=== PATIENT | male | born 2000 | race Caucasian/White ===

== ENCOUNTER 2019-01-01 20:58 | Emergency (ER) | payer MEDICAID ==
[~2019-01-01] VITALS: Ht 170.2 cm; Wt 75.0 kg
[~2019-01-01 20:58] MED LIST: KEPP250
[2019-01-01 23:11] LABS: BASOPHILS % 0.4 % (0.0-2.0); EOSINOPHILS % 0.3 % (0.0-5.0); HEMATOCRIT. 46.4 % (42.0-52.0); HEMOGLOBIN. 16.2 g/dL (14.0-18.0); LYMPHOCYTES % 21.9 % (20.0-50.0); MEAN CORPUSCULAR HEMOGLOBIN 29.4 pg (28.0-32.0); MEAN PLATELET VOLUME 8.2 fl (7.4-10.4); MONOCYTES % 6.9 % (2.0-8.0); NEUTROPHILS % 70.5 % (40.0-76.0); PLATELET 259 x1000/uL (130-400); RED BLOOD CELL COUNT 5.53 mill/uL (4.7-6.1)
[2019-01-01 23:18] LABS: CHLORIDE 102 mEq/L (98-107)
[2019-01-02 01:46] VITALS: BP 117/63
== END 2019-01-02 01:47 | disposition home or self-care (01) ==
LOC: ER 20:58
DX: G40.909 Epilepsy, unspecified, not intractable, without status epilepticus (principal); R55 Syncope and collapse; R51 Headache
CPT/HCPCS: 36415; 99283

== ENCOUNTER 2019-02-02 19:02 | Emergency (ER) | payer MEDICAID ==
[~2019-02-02] VITALS: Ht 177.8 cm; Wt 91.0 kg
[2019-02-02] MEDS ORDERED: LEVETIRACETAM 500MG PREMIX 100 ML IV ONE (19:30)
[2019-02-02] MEDS ORDERED: IBUPROFEN 600MG TABLET PO ONE (19:30)
[2019-02-02 20:14] LABS: BASOPHILS % 0.6 % (0.0-2.0); EOSINOPHILS % 2.3 % (0.0-5.0); HEMATOCRIT. 44.8 % (42.0-52.0); HEMOGLOBIN. 15.4 g/dL (14.0-18.0); LYMPHOCYTES % 27.3 % (20.0-50.0); MEAN CORPUSCULAR VOLUME 84.1 fL (80.0-94.0); MEAN PLATELET VOLUME 8.5 fl (7.4-10.4); MONOCYTES % 6.9 % (2.0-8.0); NEUTROPHILS % 62.9 % (40.0-76.0); PLATELET 235 x1000/uL (130-400); RED BLOOD CELL COUNT 5.33 mill/uL (4.7-6.1); RED CELL DISTRIBUTION WIDTH 13.4 % (11.6-14.6)
[2019-02-02 20:18] LABS: CHLORIDE 104 mEq/L (98-107)
[2019-02-02 20:28] LABS: PHENOBARBITAL 2.6 ug/mL (15.0-40.0)
[2019-02-02 20:31] LABS: CARBAMAZEPINE < 0.5 ug/mL (4-12)
[2019-02-02] MEDS ORDERED: DIVALPROEX SODIUM 250MG ER TABLET PO ONE (21:15)
[2019-02-02 21:55] VITALS: BP 124/75
== END 2019-02-02 21:45 | disposition home or self-care (01) ==
LOC: ER 21:13
DX: G40.909 Epilepsy, unspecified, not intractable, without status epilepticus (principal)
CPT/HCPCS: 36415; 70450; 80053; 80156; 80165; 80184; 80185; 85025; 96365; 99284; J1953; Z7610

== ENCOUNTER 2021-10-01 13:45 | Emergency (ER) | payer MEDICAID, OTHER ==
[~2021-10-01] VITALS: Ht 172.7 cm; Wt 111.0 kg
[2021-10-01] MEDS ORDERED: LEVETIRACETAM 500MG PREMIX 100 ML IV ONE ×2 (14:00)
[2021-10-01 14:14] LABS: BASOPHILS % 0.3 % (0.0-2.0); EOSINOPHILS % 0.7 % (0.0-5.0); HEMATOCRIT. 48.4 % (42.0-52.0); HEMOGLOBIN. 16.7 g/dL (14.0-18.0); LYMPHOCYTES % 32.1 % (20.0-50.0); MEAN CORPUSCULAR HEMOGLOBIN 28.9 pg (28.0-32.0); MEAN CORPUSCULAR VOLUME 83.8 fL (80.0-94.0); MEAN PLATELET VOLUME 8.1 fl (7.4-10.4); MONOCYTES % 6.8 % (2.0-8.0); NEUTROPHILS % 60.1 % (40.0-76.0); PLATELET 247 x1000/uL (130-400); RED BLOOD CELL COUNT 5.77 mill/uL (4.7-6.1); RED CELL DISTRIBUTION WIDTH 12.9 % (11.6-14.6)
[2021-10-01] MEDS ORDERED: SODIUM CHLORIDE 0.9% 1,000 ML IV ONE (14:15)
[2021-10-01 14:23] LABS: CHLORIDE 106 mEq/L (98-107)
[2021-10-01 14:27] LABS: ETHANOL BLOOD < 10 mg/dL
[2021-10-01 17:24] LABS: CLARITY URINE CLEAR (CLEAR); COLOR URINE YELLOW (YELLOW); KETONES URINE NEGATIVE (NEGATIVE); LEUKOCYTE ESTERASE URINE NEGATIVE (NEGATIVE); NITRITE URINE NEGATIVE (NEGATIVE); OCCULT BLOOD URINE NEGATIVE (NEGATIVE); PH URINE 6.5 (4.5-8.0); PROTEIN URINE NEGATIVE (NEGATIVE); SPECIFIC GRAVITY URINE 1.019 (1.005-1.030); UROBILINOGEN URINE 0.2 E.U./dL (0.2-1.0)
[2021-10-01 17:36] LABS: *AMPHETAMINES SCREEN URINE NEGATIVE (NEGATIVE); *BARBITURATES SCREEN URINE NEGATIVE (NEGATIVE); *BENZODIAZEPINES SCREEN URINE PRESUMTIVE POSITIVE (NEGATIVE); *COCAINE SCREEN URINE NEGATIVE (NEGATIVE)
[2021-10-01 17:37] LABS: CANNABINOID URINE SCREEN PRESUMTIVE POSITIVE (NEGATIVE); METHADONE URINE SCREEN NEGATIVE (NEGATIVE); OPIATES URINE SCREEN NEGATIVE (NEGATIVE); PHENCYCLIDINE URINE SCREEN NEGATIVE (NEGATIVE)
[2021-10-01 18:00] VITALS: BP 131/83
== END 2021-10-01 19:07 | disposition home or self-care (01) ==
LOC: ER 13:45
DX: R56.9 Unspecified convulsions (principal)
CPT/HCPCS: 36415; 80053; 80305; 80320; 81003; 85025; 96365; 96366; 99284; J1953; J7030; G0480

== ENCOUNTER 2023-07-21 17:26 | Emergency (ER) | payer MEDICAID, OTHER ==
[~2023-07-21] VITALS: Ht 170.2 cm; Wt 87.0 kg
[2023-07-21 17:37] VITALS: O2SAT 97
[2023-07-21 18:30] VITALS: BP 138/91; PULSE 96; RESP 17; TEMP 98.6
[2023-07-21] MEDS ORDERED: LEVETIRACETAM 500MG TABLET PO ONE (19:00)
[2023-07-21 20:22] LABS: BASOPHILS % 0.2 % (0.0-2.0); HEMATOCRIT. 46.7 % (42.0-52.0); HEMOGLOBIN. 15.9 g/dL (14.0-18.0); LYMPHOCYTES % 8.4 % (20.0-50.0); MEAN CORPUSCULAR HEMOGLOBIN 29.3 pg (28.0-32.0); MEAN CORPUSCULAR HGB CONC 34.1 g/dL (31.0-37.0); MEAN CORPUSCULAR VOLUME 85.8 fL (80.0-94.0); MEAN PLATELET VOLUME 8.6 fl (7.4-10.4); MONOCYTES % 5.1 % (2.0-8.0); NEUTROPHILS % 86.3 % (40.0-76.0); PLATELET 267 x1000/uL (130-400); RED BLOOD CELL COUNT 5.44 mill/uL (4.7-6.1); RED CELL DISTRIBUTION WIDTH 13.3 % (11.6-14.6); WHITE BLOOD COUNT 21.9 x1000/uL (4.5-11.0)
[2023-07-21 20:34] LABS: ALANINE AMINOTRANSFERASE 44 IU/L (10-49); ALBUMIN 4.6 g/dL (3.2-4.8); ASPARTATE AMINOTRANSFERASE 22 IU/L (<34); BILIRUBIN TOTAL 0.3 mg/dL (0.1-1.0); CALCIUM 9.5 mg/dL (8.7-10.4); CARBON DIOXIDE 25 mEq/L (21-32); CHLORIDE 103 mEq/L (98-107); CREATININE 0.8 mg/dL (0.6-1.3); GLUCOSE 97 mg/dL (70-105); POTASSIUM 4.6 mEq/L (3.5-5.1); PROTEIN TOTAL 7.9 g/dL (6.0-8.3); SODIUM 136 mEq/L (136-145); UREA NITROGEN BLOOD 12 mg/dL (9-23)
[2023-07-21 20:49] LABS: ETHANOL BLOOD < 10 mg/dL (<10)
== END 2023-07-21 21:39 | disposition home or self-care (01) ==
LOC: ER 17:26
DX: G40.89 Other seizures (principal)
CPT/HCPCS: 36415; 80053; 80320; 85025; 99283; G0480

== ENCOUNTER 2024-11-23 14:22 | Inpatient (IN) | payer MEDICAID, OTHER ==
[~2024-11-23] VITALS: Ht 167.6 cm; Wt 91.7 kg
[2024-11-23 14:27] VITALS: O2SAT 98
[2024-11-23 14:57] LABS: BASOPHILS % 0.7 % (0.0-2.0); EOSINOPHILS % 0.7 % (0.0-5.0); HEMATOCRIT. 46.2 % (42.0-52.0); HEMOGLOBIN. 15.7 g/dL (14.0-18.0); LYMPHOCYTES % 32.1 % (20.0-50.0); MEAN CORPUSCULAR HEMOGLOBIN 29.4 pg (28.0-32.0); MEAN CORPUSCULAR HGB CONC 33.9 g/dL (31.0-37.0); MEAN CORPUSCULAR VOLUME 86.6 fL (80.0-94.0); MEAN PLATELET VOLUME 8.4 fl (7.4-10.4); MONOCYTES % 6.1 % (2.0-8.0); NEUTROPHILS % 60.4 % (40.0-76.0); PLATELET 207 x1000/uL (130-400); RED BLOOD CELL COUNT 5.33 mill/uL (4.7-6.1); RED CELL DISTRIBUTION WIDTH 13.8 % (11.6-14.6); WHITE BLOOD COUNT 6.7 x1000/uL (4.5-11.0)
[2024-11-23] MEDS: LEVETIRACETAM 1000MG PREMIX 100 ML IV ONE (15:04)
[2024-11-23] MEDS: SODIUM CHLORIDE 0.9% 1,000 ML IV ONE (15:05)
[2024-11-23 15:06] LABS: CHLORIDE 105 mEq/L (98-107); POTASSIUM 4.3 mEq/L (3.5-5.1); SODIUM 137 mEq/L (136-145)
[2024-11-23 15:07] LABS: CALCIUM 9.2 mg/dL (8.7-10.4); CARBON DIOXIDE 26 mEq/L (21-32)
[2024-11-23 15:12] LABS: CREATININE 0.8 mg/dL (0.6-1.3); GLUCOSE 94 mg/dL (70-105); UREA NITROGEN BLOOD 12 mg/dL (9-23)
[2024-11-23 15:13] LABS: ETHANOL BLOOD < 10 mg/dL (<10)
[2024-11-23 15:14] LABS: CREATINE KINASE 62 IU/L (46-171)
[2024-11-23] MEDS ORDERED: LORAZEPAM 2MG/ML INJ IV PRN (15:15)
[2024-11-23 15:17] LABS: CARBAMAZEPINE < 0.4 ug/mL (4-12); PHENOBARBITAL < 3.0 ug/mL (15.0-40.0); PHENYTOIN < 2.0 ug/mL (10-20); TROPONIN I HIGH SENSITIVITY < 4 ng/L (3.0-53); VALPROIC ACID < 3.0 ug/mL (50-100)
[2024-11-23 17:05] LABS: CLARITY URINE CLEAR (CLEAR); COLOR URINE YELLOW (YELLOW); GLUCOSE URINE NEGATIVE (NEGATIVE); KETONES URINE NEGATIVE (NEGATIVE); LEUKOCYTE ESTERASE URINE NEGATIVE (NEGATIVE); NITRITE URINE NEGATIVE (NEGATIVE); OCCULT BLOOD URINE NEGATIVE (NEGATIVE); PH URINE 5.5 (4.5-8.0); PROTEIN URINE NEGATIVE (NEGATIVE); UROBILINOGEN URINE 0.2 E.U./dL (0.2-1.0)
[2024-11-23 17:30] LABS: *AMPHETAMINES SCREEN URINE NEGATIVE (NEGATIVE); *BARBITURATES SCREEN URINE NEGATIVE (NEGATIVE); *BENZODIAZEPINES SCREEN URINE PRESUMPTIVE POSITIVE (NEGATIVE)
[2024-11-23 17:31] LABS: *COCAINE SCREEN URINE NEGATIVE (NEGATIVE); CANNABINOID URINE SCREEN PRESUMPTIVE POSITIVE (NEGATIVE); ECSTASY MDMA SCREEN URINE NEGATIVE (NEGATIVE); METHADONE URINE SCREEN NEGATIVE (NEGATIVE); OPIATES URINE SCREEN NEGATIVE (NEGATIVE); PHENCYCLIDINE URINE SCREEN NEGATIVE (NEGATIVE)
[2024-11-23] MEDS ORDERED: BRIV100T PO (18:45)
[2024-11-23] MEDS ORDERED: ESLI800T PO (18:45)
[2024-11-23] MEDS ORDERED: CLOB20TA4 PO (18:45)
[2024-11-23 18:52] VITALS: BP 127/76; PULSE 71; RESP 18; TEMP 36.8
[2024-11-23 20:00] VITALS: BP 126/77; PULSE 64; RESP 20; TEMP 36.8; O2SAT 100
[2024-11-23] MEDS ORDERED: CHOL200059 PO (20:00)
[2024-11-23] MEDS ORDERED: ONDANSETRON HCL 4MG/2ML INJ IV PRN (20:00)
[2024-11-23] MEDS ORDERED: ACETAMINOPHEN 325MG TABLET PO PRN (20:00)
[2024-11-23] MEDS ORDERED: OMEG-221 PO (20:00)
[2024-11-23] MEDS ORDERED: MULT-1279 PO (20:00)
[2024-11-23] MEDS ORDERED: OMEGA ACID ETHYL ESTERS PO SCH (21:00)
[2024-11-23] MEDS: FISH OIL/OMEGA-3 FATTY ACIDS 1000MG CAPSULE PO SCH (21:26)
[2024-11-24] VITALS: BP 100/58; PULSE 65; RESP 18; TEMP 36.6; O2SAT 99
[2024-11-24 03:45] VITALS: BP 120/72; PULSE 63; RESP 18; TEMP 36.3; O2SAT 99
[2024-11-24 06:28] LABS: BASOPHILS % 0.4 % (0.0-2.0); EOSINOPHILS % 1.6 % (0.0-5.0); HEMOGLOBIN. 14.9 g/dL (14.0-18.0); LYMPHOCYTES % 40.2 % (20.0-50.0); MEAN CORPUSCULAR HEMOGLOBIN 29.4 pg (28.0-32.0); MEAN CORPUSCULAR HGB CONC 33.9 g/dL (31.0-37.0); MEAN CORPUSCULAR VOLUME 86.6 fL (80.0-94.0); MEAN PLATELET VOLUME 8.9 fl (7.4-10.4); MONOCYTES % 5.5 % (2.0-8.0); NEUTROPHILS % 52.3 % (40.0-76.0); PLATELET 203 x1000/uL (130-400); RED BLOOD CELL COUNT 5.07 mill/uL (4.7-6.1); RED CELL DISTRIBUTION WIDTH 13.5 % (11.6-14.6)
[2024-11-24 06:39] LABS: CHLORIDE 103 mEq/L (98-107); SODIUM 138 mEq/L (136-145)
[2024-11-24 06:40] LABS: CALCIUM 9.2 mg/dL (8.7-10.4); CARBON DIOXIDE 27 mEq/L (21-32)
[2024-11-24 06:45] LABS: CREATININE 0.7 mg/dL (0.6-1.3); GLUCOSE 86 mg/dL (70-105); UREA NITROGEN BLOOD 13 mg/dL (9-23)
[2024-11-24 08:00] VITALS: BP 112/61; PULSE 62; RESP 17; TEMP 36.4; O2SAT 97
[2024-11-24] MEDS: MULTIVITAMINS,THER W-MINERALS TABLET PO SCH (08:41)
[2024-11-24] MEDS: PANTOPRAZOLE SODIUM 40 MG/VIAL IV SCH (08:41)
[2024-11-24] MEDS: FAMOTIDINE 20MG/2ML VIAL IV SCH (08:41)
[2024-11-24] MEDS: CHOLECALCIFEROL (D3) 1000 UNIT TABLET PO SCH (08:41)
[2024-11-24] MEDS: LEVETIRACETAM 1000MG PREMIX 100 ML IV SCH (08:42)
[2024-11-24] MEDS ORDERED: LEVETIRACETAM 1,000MG in NACL 100ML PREMIX IV SCH (09:00)
[2024-11-24] MEDS ORDERED: MEDICATION NOT ON FORMULARY EA (Cholecalciferol (Vitamin D3) (Vitamin D3) 1 TAB) PO SCH (09:00)
[2024-11-24] MEDS ORDERED: MULTIVITAMIN PO SCH (09:00)
[2024-11-24] MEDS: CLOBAZAM 20 MG PO SCH (09:10)
[2024-11-24] MEDS: BRIVARACETAM 100 MG PO SCH (09:10)
[2024-11-24 12:00] VITALS: BP 124/69; PULSE 66; RESP 18; TEMP 36.3; O2SAT 98
== END 2024-11-24 14:46 | disposition left against medical advice (07) | DRG 53 ==
LOC: ER 14:22 → 7WST 16:59 → EDBEDREQ 17:04 → EDBEDREQTM 17:04 → ENRESERV 18:22
PROVIDERS: ADMIT Internal Medicine; ATTEND Internal Medicine
DX: G40.909 Epilepsy, unspecified, not intractable, without status epilepticus (principal); F12.90 Cannabis use, unspecified, uncomplicated; F13.90 Sedative, hypnotic, or anxiolytic use, unspecified, uncomplicated; Z53.29 Procedure and treatment not carried out because of patient's decision for other reasons
CPT/HCPCS: 36415; 80048; 80156; 80165; 80184; 80185; 80305; 80320; 81003; 82550; 84484; 85025; 93005; 99285; J1953; J2470; J3490; G0480

== ENCOUNTER 2025-03-03 19:13 | Emergency (ER) | payer MEDICAID, OTHER ==
[~2025-03-03] VITALS: Ht 167.6 cm; Wt 87.0 kg
[~2025-03-03 19:13] MED LIST changes: +BRIV100T PO; +CHOL200059 PO; +CLOB20TA4 PO; +ESLI800T PO; +MULT-1279 PO; +OMEG-221 PO
[2025-03-03 19:15] VITALS: O2SAT 100
[2025-03-03 20:13] LABS: BASOPHILS % 0.3 % (0.0-2.0); EOSINOPHILS % 0.3 % (0.0-5.0); HEMATOCRIT. 45.3 % (42.0-52.0); HEMOGLOBIN. 15.5 g/dL (14.0-18.0); LYMPHOCYTES % 27.9 % (20.0-50.0); MEAN PLATELET VOLUME 8.5 fl (7.4-10.4); MONOCYTES % 5.2 % (2.0-8.0); NEUTROPHILS % 66.3 % (40.0-76.0); PLATELET 220 x1000/uL (130-400); RED BLOOD CELL COUNT 5.23 mill/uL (4.7-6.1); RED CELL DISTRIBUTION WIDTH 13.8 % (11.6-14.6)
[2025-03-03 20:30] LABS: CREATININE 0.9 mg/dL (0.6-1.3); ETHANOL BLOOD < 10 mg/dL (<10); UREA NITROGEN BLOOD 11 mg/dL (9-23)
[2025-03-03 20:32] LABS: ASPARTATE AMINOTRANSFERASE 21 IU/L (<34); BILIRUBIN DIRECT 0.2 mg/dL (<=3.0); BILIRUBIN TOTAL 0.6 mg/dL (0.1-1.0); PROTEIN TOTAL 7.4 g/dL (6.0-8.3)
[2025-03-03 20:56] VITALS: BP 122/58; PULSE 67; RESP 18; TEMP 37; O2SAT 100
== END 2025-03-03 20:57 | disposition home or self-care (01) ==
LOC: ER 19:13
DX: S09.90XA Unspecified injury of head, initial encounter (principal); G40.409 Other generalized epilepsy and epileptic syndromes, not intractable, without status epilepticus; R07.9 Chest pain, unspecified; X58.XXXA Exposure to other specified factors, initial encounter; Y93.89 Activity, other specified; Y92.89 Other specified places as the place of occurrence of the external cause; Y99.8 Other external cause status
CPT/HCPCS: 80076; 80048; 80320; 83735; 85025; 36415; 70450; 93005; 99284; Z7610 ×2; A4606; G0480